=== PATIENT | female | born 1995 | race Hispanic/Latino ===

== ENCOUNTER 2019-02-22 15:05 | Emergency (ER) | payer OTHER ==
[~2019-02-22] VITALS: Ht 165.1 cm; Wt 60.0 kg
[~2019-02-22 15:05] MED LIST: BIRTH CONTROL PILLS; MEDDOSEPAK OR; NO MEDS; PROAIR HFA IN; SPRINTEC; SPRINTEC PO; ZITHROMAX250 MG OR
[2019-02-22] MEDS ORDERED: EFFEXOR XR75 MG PO (15:32)
[2019-02-22] MEDS ORDERED: LAMICTAL25 M2 PO (15:33)
[2019-02-22] MEDS ORDERED: KLONOPIN1 MG PO (15:33)
[2019-02-22] MEDS ORDERED: PROPRANOLOL HCL20 MG PO (15:35)
[2019-02-22] MEDS ORDERED: TRAZODONE50 MG PO (15:36)
[2019-02-22] MEDS ORDERED: BIRTH CONTROL (15:37)
[2019-02-22] MEDS ORDERED: AUGMENTIN875TAB PO (16:06)
[2019-02-22 16:55] VITALS: BP 124/81
== END 2019-02-22 16:55 | disposition home or self-care (01) | DRG 605 ==
LOC: ED 15:05
PROC: 0HQTXZZ (ICD-10-PCS; principal; 2019-02-22)
DX: S20.171A Other superficial bite of breast, right breast, initial encounter (principal); R50.9 Fever, unspecified; W54.0XXA Bitten by dog, initial encounter; Y93.89 Activity, other specified; Y92.009 Unspecified place in unspecified non-institutional (private) residence as the place of occurrence of the external cause